=== PATIENT | male | born 1955 | race African-American/Black ===

== ENCOUNTER 2023-02-23 09:30 | Emergency (ER) | payer MEDICAID ==
[~2023-02-23] VITALS: Ht 180.3 cm; Wt 95.0 kg
[2023-02-23 09:32] VITALS: BP 108/63; PULSE 65; RESP 18; TEMP 98.2; O2SAT 97
[2023-02-23] MEDS ORDERED: SODIUM CHLORIDE 0.9% 1,000 ML IV ONE (10:00)
[2023-02-23 10:50] LABS: BASOPHILS % 0.6 % (0.0-2.0); EOSINOPHILS % 0.9 % (0.0-5.0); HEMATOCRIT. 44.8 % (42.0-52.0); HEMOGLOBIN. 14.9 g/dL (14.0-18.0); LYMPHOCYTES % 29.5 % (20.0-50.0); MEAN CORPUSCULAR HEMOGLOBIN 32.9 pg (28.0-32.0); MEAN CORPUSCULAR VOLUME 98.8 fL (80.0-94.0); MEAN PLATELET VOLUME 8.4 fl (7.4-10.4); PLATELET 149 x1000/uL (130-400); RED BLOOD CELL COUNT 4.53 mill/uL (4.7-6.1); RED CELL DISTRIBUTION WIDTH 13.7 % (11.6-14.6)
[2023-02-23 10:58] LABS: CHLORIDE 107 mEq/L (98-107)
== END 2023-02-23 14:01 | disposition home or self-care (01) ==
LOC: ER 09:30
DX: R00.1 Bradycardia, unspecified (principal); R42 Dizziness and giddiness
CPT/HCPCS: 36415; 71045; 80053; 84484; 85025; 93005; 96360; 96361; 99285